=== PATIENT | female | born 1960 | race Caucasian/White ===

== ENCOUNTER 2021-01-31 08:09 | Emergency (ER) | payer OTHER ==
[2021-01-31 09:19] LABS: HEMOGLOBIN 15.7 gm/dl (12.3-15.3); RED BLOOD COUNT 4.87 M/UL (4.00-5.10); WHITE BLOOD COUNT 8.9 K/UL (4.5-11.0)
[2021-01-31 09:50] LABS: BUN/CREATININE RATIO 12 (0-10)
[2021-01-31] MEDS ORDERED: AUGMENTIN 875-1 EACH PO (13:18)
== END 2021-01-31 14:14 | disposition home or self-care (01) ==
LOC: ER1 08:09
PROVIDERS: Emergency Medicine
DX: K81.9 Cholecystitis, unspecified (principal)
CPT/HCPCS: 80053; 81001; 82550; 82553; 83690; 83874; 84484; 85025; 87040; 96374; 96375; 99284; J2270; J2405; J2543; Q9967

== ENCOUNTER → 2021-02-18 | Outpatient (CLI) | payer BC ==
[~2021-02-18] MED LIST: AUGMENTIN 875-1 EACH PO
[2021-02-18 10:18] LABS: BUN/CREATININE RATIO 12 (0-10)
== END ==
LOC: OPSV2 08:50
PROVIDERS: Surgery
DX: Z01.812 Encounter for preprocedural laboratory examination (principal)
CPT/HCPCS: 80053

== ENCOUNTER → 2021-02-24 | Day surgery (SDC) | payer BC ==
[~2021-02-24] MED LIST changes: +HYDROCODON-ACE1 EAC4 PO
== END | disposition home or self-care (01) ==
LOC: OR 07:30
DX: K80.10 Calculus of gallbladder with chronic cholecystitis without obstruction (principal); K82.8 Other specified diseases of gallbladder; Z20.822 Contact with and (suspected) exposure to COVID-19
CPT/HCPCS: 93005; C1729; J0690; J1100; J1170; J2250; J2405; J2704; J2710; J3010; J7030; J7050; J7120; Q9967

== ENCOUNTER → 2021-04-23 | Outpatient (CLI) | payer BC | LOC: HEART 5 04-22 11:00 | DX: R00.2 Palpitations (principal) ==